=== PATIENT | male | born 1985 | race Caucasian/White ===

== ENCOUNTER 2021-07-06 14:10 | Emergency (ER) | payer OTHER ==
[~2021-07-06] VITALS: Ht 170.2 cm; Wt 88.5 kg
[2021-07-06 16:00] LABS: RED BLOOD COUNT 2.46 M/UL (4.20-5.50); WHITE BLOOD COUNT 6.4 K/UL (4.5-11.0)
[2021-07-06 16:05] LABS: HEMOGLOBIN 4.2 gm/dl (14.0-17.5)
[2021-07-06 16:32] LABS: BUN/CREATININE RATIO 6 (0-10)
== END 2021-07-06 21:05 | disposition short-term general hospital (02) ==
LOC: ER1 14:10
PROVIDERS: Emergency Medicine
DX: E87.6 Hypokalemia (principal); K92.2 Gastrointestinal hemorrhage, unspecified; D62 Acute posthemorrhagic anemia; Z20.822 Contact with and (suspected) exposure to COVID-19
CPT/HCPCS: 36430; 80053; 82272; 83690; 85025; 85610; 85730; 86850; 86900; 86901; 86920; 93005; 96374; 96375; 96376; 99285; C9113; J2354; J2405; J3480; P9016; U0002

== ENCOUNTER 2021-07-15 09:10 | Inpatient (IN) | payer OTHER ==
[~2021-07-15] VITALS: Ht 170.2 cm; Wt 90.3 kg
[~2021-07-15 09:10] MED LIST: CIPRO500 MG PO
[2021-07-15 09:46] LABS: HEMOGLOBIN 9.1 gm/dl (14.0-17.5); RED BLOOD COUNT 3.98 M/UL (4.20-5.50)
[2021-07-15 10:41] LABS: BUN/CREATININE RATIO 8 (0-10)
[2021-07-15 14:23] LABS: BODY FLUID SOURCE ASCITES
[2021-07-15 14:24] LABS: MONONUCLEAR CELLS 95.8 (75-100); POLYMORPHONUCLEAR % 4.2 (0-25); RBC (AUTOMATED) 100 (0-100000); WBC (AUTOMATED) 48 (0-500)
[2021-07-15 14:50] LABS: LDH, BODY FLUID 24 U/L; TOTAL PROTEIN, BODY FLUID 0.7 gm/dL
[2021-07-15] MEDS ORDERED: SUCRALFATE1 GM PO (14:56)
[2021-07-15] MEDS ORDERED: PROTONIX40 MG PO (14:56)
[2021-07-16 03:42] LABS: RED BLOOD COUNT 3.85 M/UL (4.20-5.50)
[2021-07-16 03:46] LABS: WHITE BLOOD COUNT 12.2 K/UL (4.5-11.0)
[2021-07-16 04:10] LABS: BUN/CREATININE RATIO 6 (0-10)
[2021-07-17 07:47] LABS: HEMOGLOBIN 9.4 gm/dl (14.0-17.5); RED BLOOD COUNT 4.04 M/UL (4.20-5.50); WHITE BLOOD COUNT 14.8 K/UL (4.5-11.0)
[2021-07-17 08:29] LABS: BUN/CREATININE RATIO 8 (0-10)
[2021-07-17 11:14] LABS: HBSAG SCREEN Negative (Negative); HEP A AB, IGM Negative (Negative); HEP B CORE AB, IGM Negative (Negative); HEP C VIRUS AB >11.0 (0.0-0.9)
[2021-07-18 09:05] LABS: HEMOGLOBIN 8.9 gm/dl (14.0-17.5); RED BLOOD COUNT 3.75 M/UL (4.20-5.50); WHITE BLOOD COUNT 11.8 K/UL (4.5-11.0)
[2021-07-18 09:39] LABS: BUN/CREATININE RATIO 6 (0-10)
[2021-07-18] MEDS ORDERED: ALDACTONE 25MG25 MG PO (12:33)
[2021-07-18] MEDS ORDERED: LEVOFLOXACIN500 MG PO (12:33)
[2021-07-18] MEDS ORDERED: LASIX TAB 20 MG20 MG PO (12:35)
== END 2021-07-18 14:42 | disposition home or self-care (01) | DRG 432 ==
LOC: ER1 09:10 → CDU 12:09 → M/S 17:52
PROVIDERS: Emergency Medicine; Internal Medicine; Physician Assistant Medical; ADMIT Internal Medicine
PROC: 0W9G3ZZ Drainage of Peritoneal Cavity, Percutaneous Approach (ICD-10-PCS; principal; 2021-07-15)
PROC: BW40ZZZ Ultrasonography of Abdomen (ICD-10-PCS; 2021-07-15)
DX: K70.11 Alcoholic hepatitis with ascites (principal); J18.9 Pneumonia, unspecified organism; Z20.822 Contact with and (suspected) exposure to COVID-19; J90 Pleural effusion, not elsewhere classified; D62 Acute posthemorrhagic anemia; D73.9 Disease of spleen, unspecified; R16.0 Hepatomegaly, not elsewhere classified; K25.9 Gastric ulcer, unspecified as acute or chronic, without hemorrhage or perforation; D64.9 Anemia, unspecified; E87.6 Hypokalemia; K21.9 Gastro-esophageal reflux disease without esophagitis; F10.10 Alcohol abuse, uncomplicated; Z87.11 Personal history of peptic ulcer disease; Z80.9 Family history of malignant neoplasm, unspecified
CPT/HCPCS: 0240U; 36415; 36600; 71045; 74019; 74170; 80053; 80074; 80307; 81001; 82105; 82248; 82550; 82553; 82803; 82945; 83605; 83615; 83690; 83735; 83880; 84100; 84132; 84157; 84484; 85025; 85027; 85610; 85652; 85730; 86140; 87040; 87070; 87075; 87205; 89051; 93005; 96374; 99285; A6212; J0696; Q9967

== ENCOUNTER 2021-07-30 19:54 | Emergency (ER) | payer OTHER ==
[~2021-07-30 19:54] MED LIST changes: +ALDACTONE 25MG25 MG PO; +LASIX TAB 20 MG20 MG PO; +LEVOFLOXACIN500 MG PO; +PROTONIX40 MG PO; +SUCRALFATE1 GM PO
[2021-07-30 21:44] LABS: HEMOGLOBIN 8.2 gm/dl (14.0-17.5); RED BLOOD COUNT 3.3 M/UL (4.20-5.50); WHITE BLOOD COUNT 12.2 K/UL (4.5-11.0)
[2021-07-30 22:45] LABS: BUN/CREATININE RATIO 11 (0-10)
== END 2021-07-31 01:15 | disposition home or self-care (01) ==
LOC: ER1 19:54
PROVIDERS: Family Medicine; Student in an Organized Health Care Education/Training Program
DX: R60.0 Localized edema (principal); G89.29 Other chronic pain; D64.9 Anemia, unspecified; K74.60 Unspecified cirrhosis of liver; Z86.59 Personal history of other mental and behavioral disorders; Z87.19 Personal history of other diseases of the digestive system
CPT/HCPCS: 71045; 80053; 81001; 82550; 82553; 83880; 84484; 85025; 99283